=== PATIENT | male | born 1960 | race Caucasian/White ===

== ENCOUNTER 2018-12-02 00:02 | Emergency (ER) | payer SELFPAY ==
[~2018-12-02] VITALS: Ht 172.7 cm; Wt 87.0 kg
[2018-12-02 05:49] VITALS: BP 160/82
== END 2018-12-02 05:49 | disposition home or self-care (01) ==
LOC: ER 00:02
DX: L03.211 Cellulitis of face (principal); I10 Essential (primary) hypertension; Z87.891 Personal history of nicotine dependence
CPT/HCPCS: 99283